=== PATIENT | male | born 1990 | race Two or more races ===

== ENCOUNTER 2020-10-16 20:23 | Emergency (ER) | payer MEDICAID, OTHER ==
[~2020-10-16] VITALS: Ht 177.8 cm; Wt 129.3 kg
[2020-10-16 21:41] VITALS: BP 157/101
[2020-10-16] MEDS ORDERED: PENICILLIN G BENZ 1200000 UNITS/2 ML SYRG IM ONE (23:45)
== END 2020-10-17 00:57 | disposition home or self-care (01) ==
LOC: ER 20:23
DX: J03.00 Acute streptococcal tonsillitis, unspecified (principal); E66.9 Obesity, unspecified; Z68.41 Body mass index [BMI] 40.0-44.9, adult
CPT/HCPCS: 87070; 87880; 96372; 99283; J0561